=== PATIENT | female | born 1980 | race Two or more races ===

== ENCOUNTER 2020-05-14 08:02 | Inpatient (IN) | payer OTHER ==
[~2020-05-14] VITALS: Ht 165.1 cm; Wt 70.3 kg
[2020-05-18] MEDS ORDERED: PROTONIX40 MG PO (08:38)
[2020-05-18] MEDS ORDERED: KRISTALOSE20 GM PO (08:39)
== END 2020-05-22 11:25 | disposition home or self-care (01) | DRG 743 ==
LOC: O/R 05-20 05:39 → EDSTATUS 05-20 07:00 → SURH 05-20 07:00 → CIR.AMB 05-20 07:00 → OB/GYN 05-20 11:15
PROVIDERS: ADMIT Obstetrics & Gynecology; ATTEND Obstetrics & Gynecology
PROC: 0UB00ZZ Excision of Right Ovary, Open Approach (ICD-10-PCS; 2020-05-20)
PROC: 0UT90ZZ Resection of Uterus, Open Approach (ICD-10-PCS; principal; 2020-05-20 07:00)
DX: N85.01 Benign endometrial hyperplasia (principal); N83.11 Corpus luteum cyst of right ovary

== ENCOUNTER 2020-06-07 20:13 | Emergency (ER) | payer OTHER ==
[~2020-06-07] VITALS: Ht 165.1 cm; Wt 70.3 kg
[~2020-06-07 20:13] MED LIST: KRISTALOSE20 GM PO; PROTONIX40 MG PO
== END 2020-06-07 23:37 | disposition home or self-care (01) ==
LOC: ER 20:13
DX: G43.909 Migraine, unspecified, not intractable, without status migrainosus (principal)

== ENCOUNTER 2020-06-29 10:04 | Outpatient (CLI) | payer OTHER | END 2020-06-29 10:14 | disposition home or self-care (01) | LOC: RX STUDY 10:04 | DX: R11.2 Nausea with vomiting, unspecified (principal) ==

== ENCOUNTER 2022-07-07 10:13 | Outpatient (CLI) | payer OTHER | END 2022-07-07 10:17 | disposition home or self-care (01) | LOC: LAB 10:13 | PROVIDERS: ATTEND Emergency Medicine | DX: Z20.828 Contact with and (suspected) exposure to other viral communicable diseases (principal) ==